=== PATIENT | male | born 1985 | race Caucasian/White ===

== ENCOUNTER 2017-06-16 17:08 | Emergency (ER) | payer OTHER, BC ==
[2017-06-16 17:21] VITALS: BP 135/80
--- NOTE | 2017-06-16 18:12 | EDM.PDOC ---
ED HPI GENERAL MEDICAL PROBLEM - General Chief Complaint: Upper Extremity Injury/Pain Stated Complaint: SHOULD/BACK INJURY ON THE JOB Time Seen by Provider: 06/16/17 18:00 Source of Information: Reports: Patient - History of Present Illness INITIAL COMMENTS - FREE TEXT/NARRATIVE: Patient is here today for evaluation of the shoulder injury at work today. 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 Patient states that he was having to wiggle the shift her back and forth and then gym at intake here. Patient states that when he did this this afternoon he suddenly felt a "pop" and immediately had hot pain in right shoulder blade/ upper back. Patient states that he is able to move his arm without any difficulty and pain is located to posterior right shoulder area Patient states he has had no previous problems with this area at all. Patient denies any chronic medical conditions. Right Shoulder Pain Score (Numeric/FACES): 7 - Related Data Allergies Allergy/AdvReac Type Severity Reaction Status Date / Time No Known Allergies Allergy Verified 06/16/17 17:21 Home Meds: Home Meds . [No Known Home Meds] 06/16/17 [History] Past Medical History - Past Health History Medical/Surgical History: Denies Medical/Surgical History Other Neuro History: epilepsy Psychiatric History: Reports: Depression Social & Family History - Tobacco Use Smoking Status *Q: Never Smoker Years of Tobacco use: 10 - Caffeine Use Caffeine Use: Reports: None - Recreational Drug Use Recreational Drug Use: No Drug Use in Last 12 Months: Yes Recreational Drug Type: Reports: Marijuana/Hashish Recreational Drug Use Frequency: Daily Review of Systems - Review of Systems Review Of Systems: See Below Respiratory: Reports: No Symptoms Cardiovascular: Reports: No Symptoms Musculoskeletal: Reports: Shoulder Pain, Muscle Stiffness (Right upper extremity /right upper back.). Denies: Neck Pain, Arm Pain Skin: Reports: No Symptoms Neurological: Reports: No Symptoms Psychiatric: Reports: No Symptoms ED EXAM, GENERAL - Physical Exam Exam: See Below Exam Limited By: No Limitations General Appearance: Alert, WD/WN, No Apparent Distress Respiratory/Chest: No Respiratory Distress, Lungs Clear, Normal Breath Sounds Cardiovascular: Normal Peripheral Pulses, Regular Rate, Rhythm, No Murmur Peripheral Pulses: 2+: Radial (L), Radial (R) Back Exam: Normal Inspection, Full Range of Motion. No: Decreased Range of Motion, Paraspinal Tenderness, Vertebral Tenderness Extremities: Normal Inspection, Normal Range of Motion (Full range of motion of right shoulder.), Other (Muscular tenderness and spasm medial/inferior to right scapula. Upper extremity strength is equal bilaterally 5/5.) Neurological: Alert, Oriented, Normal Reflexes, No Motor/Sensory Deficits Course - Vital Signs Last Recorded V/S: Last Vital Signs Temp 97.8 F 06/16/17 17:18 Pulse 77 06/16/17 17:18 Resp 16 06/16/17 17:18 BP 135/80 06/16/17 17:18 Pulse Ox 99 06/16/17 17:18 - Orders/Labs/Meds Orders: Active Orders 24 hr Category Date Time Status Shoulder Comp Rt [CR] Stat Exams 06/16/17 18:11 Taken Meds: Medications Discontinued Medications Generic Name Dose Route Start Last Admin Trade Name Freq PRN Reason Stop Dose Admin Ibuprofen 600 mg 06/16/17 19:23 06/16/17 19:40 Motrin PO 06/16/17 19:24 600 mg ONETIME ONE Administration - Re-Assessments/Exams Free Text/Narrative Re-Assessment/Exam: Right shoulder x-ray demonstrates no abnormality on my review, official radiology report is pending. Likely muscular strain. Recommend rest/ice 15 minutes every 2-3 hours. Patient should not lift/push/pull greater than 20 pounds. OTC Aleve 2 by mouth twice a day. Patient is to follow-up in the clinic in one week or sooner if needed. 06/16/17 19:44 Departure - Departure Time of Disposition: 19:45 Disposition: Home, Self-Care 01 Condition: Good Clinical Impression: Muscle strain, shoulder region Qualifiers: Encounter type: initial encounter Laterality: right Qualified Code(s): S46.911A - Strain of unspecified muscle, fascia and tendon at shoulder and upper arm level, right arm, initial encounter - Discharge Information Instructions: Muscle Strain, [id number] Referrals: PCP,None [Primary Care Provider] - Forms: ED Department Discharge, ED Return to Work/School Form Additional Instructions: You were evaluated in the emergency room tonight for a strain of your right shoulder/upper back. I recommend that you rest, activity as tolerated but do not lift/push/pull greater than 20 pounds. Ice 15 minutes every 2-3 hours as needed for pain. Take [id number] Aleve 2 by mouth 2 times daily. Be sure to drink lots of nonalcoholic fluids with this. You may follow up with Lala Barbosa PA-C in clinic in 1 week for re- evaluation of this. Call [phone] to schedule this. You may certainly return to the emergency room if needed. - My Orders Last 24 Hours: My Active Orders 06/16/17 18:11 Shoulder Comp Rt [CR] Stat - Assessment/Plan Last 24 Hours: My Active Orders 06/16/17 18:11 Shoulder Comp Rt [CR] Stat
[2017-06-16] MEDS: Ibuprofen 600 MG Tab PO ONE (19:40)
--- NOTE | 2017-06-17 07:43 | CR ---
Right shoulder: Three views of the right shoulder were obtained. Comparison: Prior right shoulder exam of 12/03/15. Glenohumeral joint and acromioclavicular joint appear within normal limits. No fracture or other abnormality is seen. Impression: 1. No abnormality is identified on three-view right shoulder study. Diagnostic code #1
== END 2017-06-16 19:56 | disposition home or self-care (01) ==
LOC: JD.ED 17:08
DX: S46.911A Strain of unspecified muscle, fascia and tendon at shoulder and upper arm level, right arm, initial encounter (principal); X50.1XXA Overexertion from prolonged static or awkward postures, initial encounter
CPT/HCPCS: 73030; 99283; A9270

== ENCOUNTER 2020-07-19 20:57 | Emergency (ER) | payer OTHER, BC ==
[2020-07-19 21:17] VITALS: BP 148/86; PULSE 77
[2020-07-19] MEDS ORDERED: Sodium Chloride 0.9% 1,000 ML IV SCH (21:45)
--- NOTE | 2020-07-20 01:35 | EDM.PDOC ---
ED HPI GENERAL MEDICAL PROBLEM - General Chief Complaint: Abdominal Pain Stated Complaint: LIFTED A HEAVY BOX & FELT A STRAIN IN HIS ABDOMEN Time Seen by Provider: 07/19/20 21:00 Source of Information: Reports: Patient History Limitations: Reports: No Limitations - History of Present Illness INITIAL COMMENTS - FREE TEXT/NARRATIVE: While at work on July 18, the day before presentation, the patient lifted a heavy box and felt pain at his umbilicus. There has been no fever nausea vomiting or any other symptom of acute medical illness associated with this. The pain has been more or less constant with exacerbation upon straining and the pain has generally been mild to moderate. He does not recall that he had had an umbilical hernia prior to this. Patient takes no medications. He is healthy. Non-smoker. Middle Abdomen Pain Score (Numeric/FACES): 7 - Related Data Allergies Allergy/AdvReac Type Severity Reaction Status Date / Time No Known Allergies Allergy Verified 07/19/20 21:17 Home Meds: Home Meds . [No Known Home Meds] 06/16/17 [History] Past Medical History - Past Health History Medical/Surgical History: Denies Medical/Surgical History Other Neuro History: epilepsy Psychiatric History: Reports: Depression - Past Surgical History GI Surgical History: Reports: Hernia Repair/Other, Other (See Below) Other GI Surgeries/Procedures: ingineal hernia repair Social & Family History - Tobacco Use Tobacco Use Status *Q: Never Tobacco User Second Hand Smoke Exposure: No - Caffeine Use Caffeine Use: Reports: Coffee - Recreational Drug Use Recreational Drug Use: Yes Recreational Drug Type: Reports: Marijuana/Hashish Recreational Drug Use Frequency: Daily ED ROS GENERAL - Review of Systems Review Of Systems: Comprehensive ROS is negative, except as noted in HPI. ED EXAM, GI/ABD - Physical Exam Exam: See Below Text/Narrative:: On exam the patient is alert comfortable and appears well. Skin is warm and dry with normal turgor. Head NCAT, PERRLA EOMI, ENT grossly normal. Neck is supple without jugular venous distention. Lungs are clear full and equal breath sounds bilaterally. Heart is regular. Abdomen is soft and nontender without guarding or rebound. There is protuberance at the umbilicus with a small hernia perhaps 2 cm. It is reducible. There is pain upon any manipulation at that area. There is no redness. There is no peripheral edema cyanosis or clubbing of the digits. Neurologically the patient is intact with fluent speech normal gait and no sensory or motor deficit. His mood and affect are normal and pleasant. Course - Vital Signs Text/Narrative:: EKG shows "small fat containing periumbilical hernia. Mild diffuse increased attenuation of the fat within the hernia may be due to associated edema, either acute or chronic, inflammatory or ischemic change" clinically there is no evidence of ischemia or significant inflammation. Labs are without any salient abnormal finding. Patient is referred to surgery for elective correction of this issue. Last Recorded V/S: Last Vital Signs Temp 37.0 C 07/19/20 21:13 Pulse 77 07/19/20 21:13 Resp 18 07/19/20 21:13 BP 148/86 H 07/19/20 21:13 Pulse Ox 97 07/19/20 21:13 - Orders/Labs/Meds Orders: Active Orders 24 hr Category Date Time Status Abdomen Pelvis wo Cont [CT] Stat Exams 07/19/20 21:38 Taken Labs: Laboratory Tests 07/19/20 07/19/20 07/19/20 Range/Units 22:25 22:25 22:31 WBC 7.05 (4.23-9.07) K/mm3 RBC 4.23 L (4.63-6.08) M/mm3 Hgb 13.9 D (13.7-17.5) gm/dl Hct 41.9 (40.1-51.0) % MCV 99.1 H (79.0-92.2) fl MCH 32.9 H (25.7-32.2) pg MCHC 33.2 (32.2-35.5) g/dl RDW Std Deviation 44.8 H (35.1-43.9) fL Plt Count 246 (163-337) K/mm3 MPV 9.1 L (9.4-12.3) fl Neutrophils % (Manual) 53 (40-60) % Band Neutrophils % 0 (0-10) % Lymphocytes % (Manual) 40 (20-40) % Atypical Lymphs % 0 % Monocytes % (Manual) 4 (2-10) % Eosinophils % (Manual) 1 (0.8-7.0) % Basophils % (Manual) 2 H (0.2-1.2) Platelet Estimate Adequate Macrocytosis 1+ slight RBC Morph Comment Not Reportable Sodium 143 (136-145) mEq/L Potassium 3.8 (3.5-5.1) mEq/L Chloride 103 (98-107) mEq/L Carbon Dioxide 28 (21-32) mEq/L Anion Gap 15.8 H (5-15) BUN 22 H (7-18) mg/dL Creatinine 1.2 (0.7-1.3) mg/dL Est Cr Clr Drug Dosing 86.74 mL/min Estimated GFR (MDRD) > 60 (>60) mL/min BUN/Creatinine Ratio 18.3 H (14-18) Glucose 97 (74-106) mg/dL Calcium 9.6 (8.5-10.1) mg/dL Total Bilirubin 0.3 (0.2-1.0) mg/dL AST 26 (15-37) U/L ALT 59 (16-63) U/L Alkaline Phosphatase 58 (46-116) U/L Total Protein 8.0 (6.4-8.2) g/dl Albumin 4.3 (3.4-5.0) g/dl Globulin 3.7 gm/dL Albumin/Globulin Ratio 1.2 (1-2) Amylase 44 (25-115) U/L Lipase 197 (73-393) U/L Urine Color Yellow (Yellow) Urine Appearance Clear (Clear) Urine pH 6.5 (5.0-8.0) Ur Specific [place] > or = 1.030 (1.005-1.030) Urine Protein Negative (Negative) Urine Glucose (UA) Negative (Negative) Urine Ketones Negative (Negative) Urine Occult Blood Trace-intact H (Negative) Urine Nitrite Negative (Negative) Urine Bilirubin Negative (Negative) Urine Urobilinogen 0.2 (0.2-1.0) Ur Leukocyte Esterase Negative (Negative) Urine RBC 0-5 (0-5) /hpf Urine WBC 0-5 (0-5) /hpf Ur Squamous Epith Cells 0-5 (0-5) /hpf Urine Bacteria Occasional (FEW) /hpf Urine Mucus Not seen (FEW) /hpf Meds: Medications Discontinued Medications Generic Name Dose Route Start Last Admin Trade Name Freq PRN Reason Stop Dose Admin Sodium Chloride 1,000 mls @ 150 mls/hr 07/19/20 21:45 Normal Saline IV ASDIRECTED HILARIO Departure - Departure Time of Disposition: 01:42 Disposition: Home, Self-Care 01 Condition: Good Clinical Impression: Periumbilical hernia - Discharge Information Referrals: Steve Esparza PA-C [Primary Care Provider] - Keyanna Buchanan MD [Physician] - Forms: ED Department Discharge Additional Instructions: Call Dr. Mitchell on Wednesday and be seen as soon as he can bring you to the office for a consultation. 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 For any increased pain, more prominence of the hernia, fever nausea vomiting any other symptom of an acute problem return to the ER immediately. Sepsis Event Note (ED) - Evaluation Sepsis Screening Result: No Definite Risk - Focused Exam Vital Signs: Vital Signs Temp Pulse Resp BP Pulse Ox 07/19/20 21:13 37.0 C 77 18 148/86 H 97 - My Orders Last 24 Hours: My Active Orders 07/19/20 21:38 Abdomen Pelvis wo Cont [CT] Stat - Assessment/Plan Last 24 Hours: My Active Orders 07/19/20 21:38 Abdomen Pelvis wo Cont [CT] Stat
--- NOTE | 2020-07-20 13:25 | CT ---
CT abdomen and pelvis Technique: Multiple axial sections were obtained from above the dome of the diaphragm inferiorly through the pubic symphysis. Intravenous and oral contrast was not utilized. Reconstructed coronal and sagittal images were obtained. Comparison: No prior abdominal imaging is available. Findings: Visualized lung bases show nothing acute. Diffuse fatty infiltration is seen throughout the liver. Posterior right lobe of the liver shows a small low density finding measuring approximately 1.1 cm which is believed to represent a cyst by Hounsfield unit measurements. Gallbladder contains no calcified gallstones. Spleen size is within normal limits. Adrenal glands show no nodule. Pancreas shows no abnormality. Kidneys show no abnormal calcifications or hydronephrosis. Abdominal aorta shows no aneurysm. No retroperitoneal adenopathy is seen. Fat-containing umbilical hernia is seen which shows minimal increased density. No additional abdominal hernia is noted. No pelvic mass or adenopathy is seen. Appendix is seen which is normal. Bone window settings were reviewed which show no acute osseous finding. Impression: 1. Small fat-containing umbilical hernia showing slight increased density. Difficult to exclude minimal inflammatory change. 2. Diffuse fatty infiltration within the liver. Small cyst is seen within the posterior right lobe of the liver. 3. No other acute abnormality is appreciated. Diagnostic code #3 I agree with preliminary report from [facility], finalized on 07/20/20, 1:38 AM CDT
== END 2020-07-20 02:19 | disposition home or self-care (01) ==
LOC: JD.ED 20:57
DX: K42.9 Umbilical hernia without obstruction or gangrene (principal)
CPT/HCPCS: 36415; 74176; 74176-26; 80053; 81001; 82150; 83690; 85007; 85027; 99284; 99284-25